=== PATIENT | female | born 1985 | race Caucasian/White ===

== ENCOUNTER 2016-09-06 22:37 | Emergency (ER) | payer OTHER ==
[2016-09-06 22:37] VITALS: BMI 25.0
[2016-09-06 22:44] VITALS: TEMP 99.6
[2016-09-06] MEDS ORDERED: DiphenhydrAMINE 50 mg/ml Inj IV STA (23:13)
--- NOTE | 2016-09-06 23:17 | ED PDOC ---
HPI: Skin/Bite Injury Time Seen by Provider: 09/06/16 22:56 Chief Complaint (Nursing): Abnormal Skin Integrity Chief Complaint (Provider): rash History Per: Patient History/Exam Limitations: no limitations Onset/Duration Of Symptoms: Hrs (2) Current Symptoms Are (Timing): Still Present Quality Of Symptoms: Itching Additional History Per: Patient Additional Complaint(s): 31 y/o female presents with diffuse pruritic rash x 2 hours. Patient states symptoms started after petting her dog, which she has had for 5 years. Denies facial swelling, difficulty speaking/swallowing, cough, chest pain, shortness of breath, palpitations. Patient states she returned from [place] 2 days ago, and yesterday had vomiting and diarrhea; since improved. Tolerating PO. Denies abdominal pain. Past Medical History Reviewed: Historical Data, Nursing Documentation, Vital Signs Vital Signs: Last Vital Signs Temp 99.6 F 09/06/16 22:40 Pulse 94 H 09/06/16 22:40 Resp 18 09/06/16 22:40 BP 108/65 09/06/16 22:40 Pulse Ox 98 09/06/16 23:17 - Medical History PMH: No Chronic Diseases - Surgical History Surgical History: No Surg Hx - Family History Family History: States: Unknown Family Hx - Home Medications Home Medications: Ambulatory Orders Medication Instructions Recorded Pnv No.95/Ferrous Fum/Folic AC 1 tab PO DAILY 02/15/16 [Prenavite] Ibuprofen [Motrin Tab] 600 mg PO Q6 PRN #30 tab 02/17/16 Prednisone 50 mg PO DAILY #4 tablet 09/07/16 - Allergies Allergies/Adverse Reactions: Allergies Allergy/AdvReac Type Severity Reaction Status Date / Time cat dander Allergy RASH Verified 09/06/16 22:39 dog dander Allergy RASH Verified 09/06/16 22:39 Review of Systems ROS Statement: Except As Marked, All Systems Reviewed And Found Negative Skin: Positive for: Rash Physical Exam - Reviewed Nursing Documentation Reviewed: Yes Vital Signs Reviewed: Yes - Physical Exam Appears: Positive for: Well, Non-toxic, No Acute Distress Head Exam: Positive for: ATRAUMATIC, NORMAL INSPECTION, NORMOCEPHALIC Skin: Positive for: Rash (diffuse urticarial rash) Eye Exam: Positive for: Normal appearance ENT: Positive for: Normal ENT Inspection Cardiovascular/Chest: Positive for: Regular Rate, Rhythm Respiratory: Positive for: Normal Breath Sounds Gastrointestinal/Abdominal: Positive for: Normal Exam Back: Positive for: Normal Inspection Extremity: Positive for: Normal ROM Neurologic/Psych: Positive for: Alert, Oriented - Laboratory Results Urine POC: Negative Urine dip results: Positive for: Ketones (trace). Negative for: Leukocyte Esterase, Blood, Nitrate - ECG O2 Sat by Pulse Oximetry: 98 - Progress ED Course And Treament: IV solumedrol, IV benadryl, IV pepcid On re-eval, patient states she is feeling better; rash almost resolved. Patient educated on findings, discharged with rx Prednisone. Advised Benadryl PRN. Follow up PMD/[facility] Return to ED for worsening/concerning symptoms. Disposition - Clinical Impression Clinical Impression: Urticaria - Patient ED Disposition Is Patient to be Admitted: No Counseled Patient/Family Regarding: Diagnosis, Need For Followup, Rx Given - Disposition Referrals: Livan Paige MD [Staff Provider] - Disposition: Routine/Home Disposition Time: 00:53 Condition: IMPROVED Additional Instructions: Take medication as directed. Take Benadryl as directed, as needed. Return to ED for worsening/concerning symptoms. Prescriptions: Prednisone 50 mg PO DAILY #4 tablet Instructions: Urticaria (ED)
[2016-09-06] MEDS ORDERED: DiphenhydrAMINE 50 mg/ml Inj ONE (23:29)
[2016-09-07 01:14] VITALS: BP 103/64; PULSE 86; RESP 16; O2SAT 94
== END 2016-09-07 01:15 | disposition home or self-care (01) ==
LOC: H.ER 22:37
DX: L50.9 Urticaria, unspecified (principal)